=== PATIENT | male | born 1995 | race Caucasian/White ===

== ENCOUNTER 2020-08-08 10:18 | Emergency (ER) | payer SELFPAY ==
[2020-08-08 10:34] VITALS: BP 174/99; PULSE 69; RESP 18; TEMP 36.6; O2SAT 96; BMI 36.0
--- NOTE | 2020-08-08 10:58 | ECG_ITS ---
[facility] Test Date: 2020-08-08 Pat Name: Issac Phelan Department: Room: Gender: Male [employer]: : 1995 Requested By: Ousmane Garay Order Number: [id number] Mike MD: Yonny Mcbride M.D. Measurements Intervals [place] Rate: 85 P: 40 TN: 130 QRS: 83 QRSD: 93 T: 9 QT: 344 QTc: 411 Interpretive Statements SINUS RHYTHM WITH SINUS ARRHYTHMIA No previous ECG available for comparison Electronically Signed On 08-08-2020 18:56:40 CDT by Yonny Mcbride M.D. [id number]
--- NOTE | 2020-08-08 10:58 | XRR_ITS ---
PROCEDURE INFORMATION: Exam: XR Chest Exam date and time: 08/08/2020 11:18 AM Age: 25 years old Clinical indication: Cough and dyspnea; Additional info: Dyspnea/cough TECHNIQUE: Imaging protocol: XR of the chest. Views: 1 view. COMPARISON: No relevant prior studies available. FINDINGS: Lungs: Unremarkable. No consolidation. Pleural spaces: Unremarkable. No pleural effusion. No pneumothorax. Heart/Mediastinum: Unremarkable. No cardiomegaly. Bones/joints: Unremarkable. XR/XR chest 1V portable 29130 IMPRESSION: No acute findings.
--- NOTE | 2020-08-08 11:00 | ED_ITS ---
HPI - URI/Sore Throat General: Chief Complaint: Upper Respiratory Infection Stated Complaint: CHEST CONGESTION, COUGH Time Seen by Provider: 08/08/20 10:34 History of Present Illness: HPI Narrative: 25-year-old male comes in complaining of cough nasal congestion for last few days no fever cough minimally productive. Patient has not had any diarrhea or anosmia. No chest pain. MD elicited complaint: cough and nasal congestion Pertinent past history: seasonal allergies Onset (ago): week(s) Consistency: constant Severity: moderate Able to tolerate fluids by mouth: Yes Exacerbating factors: exertion Relieving factors: rest Associated symptoms: Deny abdominal pain, change in voice, chills, chest pain, congestion, cough, diarrhea, epistaxis, ear or mastoid pain, fever(s), headac he(s), myalgias, nasal congestion, nausea, rash, rhinorrhea, short of breath, sore throat or vomiting Treatments prior to arrival: none and other ([id number] antihistamines and nasal steroids) Review of Systems Const: Denies: fever(s) or chills ENMT: Denies: ear or mastoid pain, nasal congestion or epistaxis Card: Denies: chest pain Resp: Denies: dyspnea, productive cough or non-productive cough GI: Denies: abdominal pain, nausea, vomiting or diarrhea : Denies: flank pain, dysuria, urinary frequency or urinary urgency Skin/Breast: Denies: rash or pruritus Neuro: Denies: headache(s) Physical Exam Const: COMMON NORMALS: no acute distress GENERAL APPEARANCE: cooperative and comfortable ORIENTATION/CONSCIOUSNESS: Yes awake, Yes oriented to person, Yes oriented to place and Yes oriented to time HENMT: COMMON NORMALS: normocephalic, atraumatic, hearing grossly normal bilaterally and external ears normal HEAD & SCALP: normocephalic and atraumat ic EXTERNAL EAR: Yes external ears normal Neck/C-Spine: COMMON NORMALS: no JVD Resp: COMMON NORMALS: normal respiratory effort, No retractions, No use of accessory muscles and clear to auscultation bilaterally AUSCULTATION: clear to auscultation bilaterally Cardio: COMMON NORMALS: no JVD, regular rate, regular rhythm and No murmurs present (Cardio) RATE: regular rate RHYTHM: regular rhythm GI: COMMON NORMALS: Soft to palpation and No hepatosplenomegaly present AUSCULTATION: Yes normoactive bowel sounds PALPATION: Yes Soft to palpation, No Tenderness to palpation present (GI), No Guarding due to palpation present (GI) and Yes No hepatosplenomegaly present Extremity: COMMON NORMALS: normal to inspection, capillary refill normal, no clubbing, cyanosis or edema, no calf tenderness and no pedal edema Neuro: SENSORIUM/ORIENTATION: Yes oriented to person, Yes oriented to place and Yes oriented to time Skin: COMMON NORMALS: no rashes or lesions noted GENERAL SKIN EXAM: no rashes or lesions noted Course Vital Signs: Vital signs: Vital Signs Temperature 97.8 F 08/08/20 10:34 Pulse Rate 64 08/08/20 12:21 Respiratory Rate 20 H 08/08/20 12:21 Blood Pressure 163/76 08/08/20 12:21 Pulse Oximetry 97 08/08/20 12:21 MDM - URI/Sore Throat MDM Narrative: Medical decision making narrative: Labs and x-ray reviewed with the patient. We will go ahead and discharge home on doxycycline Medrol Dosepak and albuterol suspect it may be some underlying asthma component he says he has been told he had asthma in the past he does not really take anything for it regularly Lab Data: Labs: Lab Results 08/08/20 Range/Units 11:34 WBC 12.0 H (4.0-10.0) 10^3/ uL RBC 5.67 H (4.1-5.3) 10^6/u L Hgb 17.3 H (11.7-16.6) g/dL Hct 49.2 (42.0-52.0) % MCV 86.8 (80-94) fL MCH 30.5 (28.0-34.0) pg MCHC 35.2 (30.0-36.0) g/dL RDW 11.9 L (12.1-15.1) % Plt Count 221 (130-400) 10^3/c mm MPV 11.4 H (7.4-10.4) fL Neut % (Auto) 78.1 % Lymph % (Auto) 14.0 % [place] % (Auto) 5.4 % Eos % (Auto) 1.6 % Baso % (Auto) 0.6 % Neut # (Auto) 9.34 H (1.8-7.7) 10^3/u L Lymph # (Auto) 1.7 (0.8-4.8) 10^3/u L [place] # (Auto) 0.6 (0.2-0.9) 10^3/u L Eos # (Auto) 0.2 (0.0-0.8) 10^3/u L Baso # (Auto) 0.1 (0.0-0.1) 10^3/u L Nucleated RBC % (a uto) 0 % Nucleated RBCs # 0.0 /100WBC Discharge Plan Discharge Patient Disposition: Home Clinical Impression: Bronchitis Condition: Stable Prescriptions: New doxycycline hyclate 100 mg capsule 100 mg PO BID 10 Days Qty: 20 RF: 0 Medrol (Manolo) 4 mg tablets,dose pack See Rx Instructions .ROUTE .COMPLEX Qty: 21 RF: 0 albuterol sulfate 90 mcg/actuation HFA aerosol inhaler 2 inh INHALATION Q4H PRN (Reason: shortness of breath or wheezing) Qty: 18 RF: 0 Discharge Orders: Discharge ED (Routine); Ordered 08/08/20 Ordered By: Ousmane Ann Discharge Diet: Usual diet Discharge Activity: Increase activity as tolerated Patient Instructions: Opioid Safety Coding Level of Care Code ED [employer] for [employer]re Fwd Exam Comprehensive
[2020-08-08 11:15] VITALS: PULSE 77; RESP 18; O2SAT 97
[2020-08-08 11:20] VITALS: PULSE 87
[2020-08-08 11:45] LABS: Basophils # 0.1 10^3/uL (0.0-0.1); Basophils % 0.6 %; Eosinophils # 0.2 10^3/uL (0.0-0.8); Eosinophils % 1.6 %; Hematocrit 49.2 % (42.0-52.0); Hemoglobin 17.3 g/dL (11.7-16.6); Lymphocytes # 1.7 10^3/uL (0.8-4.8); Mean Corpuscular HGB Conc 35.2 g/dL (30.0-36.0); Mean Corpuscular Hemoglobin 30.5 pg (28.0-34.0); Mean Corpuscular Volume 86.8 fL (80-94); Mean Platelet Volume 11.4 fL (7.4-10.4); Monocytes # 0.6 10^3/uL (0.2-0.9); Monocytes % 5.4 %; Neutrophils # 9.34 10^3/uL (1.8-7.7); Neutrophils % 78.1 %; Nucleated Red Blood Cells % 0 %; Platelet Count 221 10^3/cmm (130-400); Red Blood Count 5.67 10^6/uL (4.1-5.3); Red Cell Distribution Width 11.9 % (12.1-15.1)
[2020-08-08 12:21] VITALS: BP 163/76; PULSE 64; RESP 20; O2SAT 97
== END 2020-08-08 12:24 | disposition home or self-care (01) ==
PROVIDERS: Emergency Provider Family Medicine
DX: J40 Bronchitis, not specified as acute or chronic (principal)
CPT/HCPCS: 71045; 85025; 93005; 94640; 96374; 99284; J2930; J7611